=== PATIENT | male | born 1970 | race African-American/Black ===

== ENCOUNTER 2017-11-29 12:46 | Emergency (ER) | payer SELFPAY ==
[2017-11-29 15:10] LABS: Bilirubin Negative (Negative); Blood, Urine Negative (Negative); Clarity CLEAR (Clear); Glucose, Urine (Dipstick) >=1000 mg/dL (Negative); Leukocyte Small (Negative); Nitrite Negative (Negative); Protein, Urine (Dipstick) Negative (Neg-Trace); Specific Gravity, Urine 1.029 (1.002-1.036)
[2017-11-29 15:15] LABS: Bacteria/HPF None Seen HPF (None Seen); Hyaline Casts/LPF 7-10 HYALINE CAST LPF (0-3 Hyaline); RBC/HPF 0-3 HPF (0-3); Squamous Epithelial 0-3 HPF (0-3); WBC/HPF 21-50 HPF (0-3)
[2017-11-29] MEDS ORDERED: Lidocaine 1% w/Epinephrine 1:100K 20 ML VIAL ONE (15:37)
[2017-11-29] MEDS ORDERED: Lidocaine 1% (PF) 30 ML VIAL ONE (16:13)
[2017-11-29] MEDS ORDERED: Piperacillin/Tazobactam 4.5 GM in Sodium Chloride 0.9% 100 ML IVPB ONE (17:00)
[2017-11-29 17:21] LABS: #Basophils 0.1 thou/uL (0.0-0.2); #Eosinphils 0.1 thou/uL (0.0-0.7); #Lymphocytes 2.1 thou/uL (1.20-3.40); #Monocytes 0.9 thou/uL (0.11-0.59); #Neutrophils 9.3 thou/uL (1.40-6.50); %Basophils 0.5 % (0.0-1.0); %Eosinophils 0.9 % (0.0-10.0); %Lymphocytes 16.9 % (21.0-51.0); %Monocytes 7.1 % (0.0-10.0); %Neutrophils 74.6 % (42.0-75.0); Hemoglobin 15.6 g/dL (14.0-18.0); Mean Corpuscular HGB CONC 33.7 g/dL (32.0-36.0); Mean Corpuscular Hemoglobin 29.7 pg (27.0-31.0); Mean Corpuscular Volume 88.2 fl (80.0-94.0); Mean Platelet Volume 7.4 fL (7.4-10.4); Platelet Count 320 thou/uL (130-400); RBC Distribution Width 11.2 % (11.5-14.5); Red Blood Cell (RBC) Count 5.23 mill/uL (4.70-6.10); White Blood Cell (WBC) Count 12.5 thou/uL (4.8-10.8)
[2017-11-29 17:39] LABS: ALT (SGPT) 13 U/L (8-55); AST (SGOT) 9 U/L (5-34); Albumin 3.8 g/dL (3.5-5.0); Alkaline Phosphatase 89 U/L (40-150); Anion Gap 12 mmol/L (10-20); BUN (Urea Nitrogen) 10 mg/dL (8.9-20.6); Bilirubin, Total 0.7 mg/dL (0.2-1.2); Calc. Creatinine Clearance 0 mL/min (70-130); Calcium 9.1 mg/dL (7.8-10.44); Carbon Dioxide 24 mmol/L (22-29); Chloride 104 mmol/L (98-107); Estimated GFR-MDRD Greater than 90; Globulin 2.9 g/dL (2.4-3.5); Glucose 187 mg/dL (70-105); Protein, Total 6.7 g/dL (6.0-8.3); Sodium 136 mmol/L (136-145)
== END 2017-11-29 19:25 | disposition home or self-care (01) ==
LOC: ERS 12:46
DX: L02.215 Cutaneous abscess of perineum (principal); E11.65 Type 2 diabetes mellitus with hyperglycemia; F17.200 Nicotine dependence, unspecified, uncomplicated
CPT/HCPCS: 36415; 36416; 46040; 80053; 81003; 81015; 85025; 87040; 87070; 87086; 87205; 96365; 99406; J2001; J2543; J7050

== ENCOUNTER 2018-01-16 07:22 | Emergency (ER) | payer SELFPAY ==
--- NOTE | 2018-01-16 10:10 | RAD ---
3 VIEWS RIGHT SHOULDER: Date: 01/16/18 COMPARISON: None. HISTORY: Fall, trauma, and pain. FINDINGS: There is no widening of the acromioclavicular or coracoclavicular interspace. No displaced fracture o r evidence of dislocation seen. IMPRESSION: No acute findings. POS: [facility]
== END 2018-01-16 08:42 | disposition home or self-care (01) ==
LOC: ERS 07:22
DX: S40.011A Contusion of right shoulder, initial encounter (principal); E11.9 Type 2 diabetes mellitus without complications; F17.210 Nicotine dependence, cigarettes, uncomplicated; V86.59XA Driver of other special all-terrain or other off-road motor vehicle injured in nontraffic accident, initial encounter

== ENCOUNTER 2019-01-20 09:41 | Emergency (ER) | payer SELFPAY ==
[2019-01-20] MEDS ORDERED: Insulin Regular 300 UNITS/3 ML VIAL ONE (11:08)
[2019-01-20 11:15] LABS: #Basophils 0.1 thou/uL (0.0-0.2); #Eosinphils 0.2 thou/uL (0.0-0.7); #Lymphocytes 1.8 thou/uL (1.20-3.40); #Monocytes 0.8 thou/uL (0.11-0.59); #Neutrophils 3.8 thou/uL (1.40-6.50); %Basophils 0.9 % (0.0-1.0); %Eosinophils 3.3 % (0.0-10.0); %Neutrophils 56.8 % (42.0-75.0); Hemoglobin 14.8 g/dL (14.0-18.0); Mean Corpuscular HGB CONC 33.5 g/dL (32.0-36.0); Mean Corpuscular Hemoglobin 29.8 pg (27.0-31.0); Mean Corpuscular Volume 88.9 fL (78.0-98.0); Platelet Count 289 thou/uL (130-400); RBC Distribution Width 11.2 % (11.5-14.5); Red Blood Cell (RBC) Count 4.96 mill/uL (4.70-6.10); White Blood Cell (WBC) Count 6.7 thou/uL (4.8-10.8)
[2019-01-20 11:39] LABS: ALT (SGPT) 21 U/L (8-55); AST (SGOT) 13 U/L (5-34); Alkaline Phosphatase 95 U/L (40-150); Anion Gap 14 mmol/L (10-20); BUN (Urea Nitrogen) 13 mg/dL (8.9-20.6); Bilirubin, Total 0.7 mg/dL (0.2-1.2); Calc. Creatinine Clearance 0 mL/min (70-130); Calcium 9.7 mg/dL (7.8-10.44); Carbon Dioxide 23 mmol/L (22-29); Chloride 99 mmol/L (98-107); Estimated GFR-MDRD 87; Globulin 3.3 g/dL (2.4-3.5); Glucose 445 mg/dL (70-105); Potassium 4.6 mmol/L (3.5-5.1); Protein, Total 7.3 g/dL (6.0-8.3); Sodium 131 mmol/L (136-145)
[2019-01-20 11:39] LABS: Bilirubin Negative (Negative); Blood, Urine Negative (Negative); Clarity CLEAR (Clear); Glucose, Urine (Dipstick) >=1000 mg/dL (Negative); Leukocyte Negative (Negative); Nitrite Negative (Negative); Protein, Urine (Dipstick) Negative (Neg-Trace); Specific Gravity, Urine 1.035 (1.002-1.036); Urobilinogen 0.2 mg/dL (0.2-1.0); pH, Urine 5.5 (5.0-9.0)
[2019-01-20 11:43] LABS: Bicarbonate (HCO3v) 25.5 mmol/L (22.0-28.0); CO2 Tension (PvCO2) 43.5 mmHg (40.0-50.0); Calcium, Ionized 1.15 mmol/L (See Comments:); Chloride 101 mmol/L (98-107); Hemoglobin - Calc 15.9 g/dL (14.0-18.0); Potassium 4.7 mmol/L (3.5-5.1); Sodium 133 mmol/L (138-145); T. Carbon Dioxide 26.8 mmol/L (22.0-28.0); pH (Venous) 7.376 (7.320-7.430); vO2 Saturation-calc 80.4 % (60.0-85.0)
== END 2019-01-20 13:09 | disposition home or self-care (01) ==
LOC: ERS 09:41
DX: J06.9 Acute upper respiratory infection, unspecified (principal); E11.65 Type 2 diabetes mellitus with hyperglycemia; F17.210 Nicotine dependence, cigarettes, uncomplicated
CPT/HCPCS: 36415; 36416; 80053; 81003; 82010; 82330; 82803; 85025; 96361; 96374; J1815

== ENCOUNTER 2019-07-15 05:31 | Observation (INO) | payer SELFPAY ==
[2019-07-15 06:22] LABS: #Basophils 0.1 thou/uL (0.0-0.2); #Lymphocytes 2.2 thou/uL (1.20-3.40); #Monocytes 0.5 thou/uL (0.11-0.59); #Neutrophils 5.9 thou/uL (1.40-6.50); %Basophils 0.6 % (0.0-1.0); %Eosinophils 0.3 % (0.0-10.0); %Lymphocytes 24.7 % (21.0-51.0); %Monocytes 6.2 % (0.0-10.0); %Neutrophils 68.2 % (42.0-75.0); Hemoglobin 15.4 g/dL (14.0-18.0); Mean Corpuscular Hemoglobin 30.6 pg (27.0-31.0); Mean Corpuscular Volume 87.3 fL (78.0-98.0); Mean Platelet Volume 7.9 fL (7.4-10.4); Platelet Count 294 thou/uL (130-400); RBC Distribution Width 11.4 % (11.5-14.5); Red Blood Cell (RBC) Count 5.02 mill/uL (4.70-6.10); White Blood Cell (WBC) Count 8.7 thou/uL (4.8-10.8)
[2019-07-15 06:44] LABS: ALT (SGPT) 18 U/L (8-55); AST (SGOT) 19 U/L (5-34); Albumin 4.1 g/dL (3.5-5.0); Alkaline Phosphatase 84 U/L (40-110); Anion Gap 17 mmol/L (10-20); BUN (Urea Nitrogen) 10 mg/dL (8.9-20.6); Bilirubin, Total 0.5 mg/dL (0.2-1.2); Calc. Creatinine Clearance 0 mL/min (70-130); Calcium 9.1 mg/dL (7.8-10.44); Carbon Dioxide 22 mmol/L (22-29); Chloride 100 mmol/L (98-107); Estimated GFR-MDRD 75; Globulin 3.4 g/dL (2.4-3.5); Glucose 279 mg/dL (70-105); Potassium 4.5 mmol/L (3.5-5.1); Protein, Total 7.5 g/dL (6.0-8.3); Sodium 134 mmol/L (136-145)
--- NOTE | 2019-07-15 08:07 | CT ---
PRELIMINARY REPORT/[facility]/EMERGENCY AFTER HOURS PROCEDURE: PROCEDURE INFORMATION: Exam: CT Head Without Contrast Exam date and time: 07/15/2019 6:18 AM Clinical history: 48 years old, male; Patient HX: M48 w/ HX of dm presents to the ED for evaluation of chest pain, SOB onset at 2200 and headache onset at 0200. PT states it feels like his "chest is caving in. " PT reports he used cocaine tonight and took a "sex pill" called "ursula leblanc. " TECHNIQUE: Imaging protocol: Computed tomography of the head without contrast. COMPARISON: No relevant prior studies available. FINDINGS: Brain: No hemorrhage. Unremarkable white matter. No mass effect. Ventricles: No ventriculomegaly. Bones/joints: No acute fracture. Sinuses: Visualized sinuses are unremarkable. No fluid levels. Mastoid air cells: Visualized mastoid air cells are well aerated. Soft tissues: Unremarkable. IMPRESSION: No acute intracranial abnormality. Thank you for allowing us to participate in the care of your patient. Dictated and Authenticated by: Aaliyah Henriquez MD 07/15/2019 6:40 AM Central Time ([place] & [place]) FINAL REPORT EMERGENCY AFTER HOURS STUDY: CT BRAIN NONCONTRAST: DATE: 07/15/2019. HISTORY: 48-year-old male with headache. FINDINGS: There is no evidence of acute intra-axial or extra-axial hemorrhage. There is no midline shift or any other mass effect. There is no extra-axial fluid collection. There is no evidence of obstructive hydrocephalus. Calvarium is intact. Agree with preliminary report by [facility]. IMPRESSION: No acute intracranial findings. Transcribed Date/Time: 07/15/2019 8:15 AM
--- NOTE | 2019-07-15 08:37 | RAD ---
RADIOGRAPH CHEST 1 VIEW: DATE: 07/15/2019 HISTORY: 48-year-old male with dyspnea FINDINGS: There are no airspace densities, pulmonary edema, pneumothorax, or cardiomegaly. The lateral costophr enic angles are sharp. IMPRESSION: No acute cardiopulmonary findings.
[2019-07-15 08:52] VITALS: BMI 30.6
[2019-07-15] MEDS: Nitroglycerin 2% Ointment 1 INCH/1 GM Packet TOP SCH ×2 (12:52→21:40)
[2019-07-15 12:58] LABS: Troponin I 0.013 ng/mL (< 0.028)
--- NOTE | 2019-07-15 13:24 | ULT ---
ULTRASOUND DOPPLER DUPLEX VENOUS LEFT LOWER EXTREMITY: DATE: 07/15/2019 HISTORY: 48-year-old male with bilateral lower extremity pain. TECHNIQUE: Grayscale, color-flow, and spectral analysis, of major veins of left lower extremity. FINDINGS: There is demonstration of blood flow with normal compressibility, of the left common femoral, profund a femoral, greater saphenous, femoral, popliteal, and posterior tibial, veins. IMPRESSION: Negative. No deep venous thrombosis of left lower extremity.
[2019-07-15] MEDS ORDERED: Ondansetron ODT 4 MG TAB PO PRN (14:59)
[2019-07-15] MEDS ORDERED: Dextrose 50% Abboject 50 ML SYRINGE SLOW IVP PRN (14:59)
[2019-07-15] MEDS ORDERED: HumaLOG 300 UNITS/3 ML VIAL SC PRN (14:59)
[2019-07-15] MEDS ORDERED: Dextrose 5% in Water 1,000 ML IV PRN (14:59)
[2019-07-15] MEDS ORDERED: Ondansetron PF 4 MG/2 ML Vial IVP PRN (14:59)
[2019-07-15] MEDS ORDERED: Acetaminophen 325 MG TAB PO PRN (14:59)
[2019-07-15 15:33] LABS: Hemoglobin A1c 10.2 % (4.0-6.0)
[2019-07-15 15:45] LABS: Troponin I Less than 0.010 ng/mL (< 0.028)
[2019-07-15] MEDS: HumaLOG 300 UNITS/3 ML VIAL SC PRN (16:49)
--- NOTE | 2019-07-15 18:54 | HP ---
PRIMARY CARE PHYSICIAN: None. CHIEF COMPLAINT: Chest pain. HISTORY OF PRESENT ILLNESS: Mr. Walton is a 48-year-old man with a past medical history of diabetes, not on any home medications, presented to the ED earlier this morning due to new onset of chest pain and shortness of breath along with a headache that started late last night. He states that one of his friends was in town and they had went out alliance party last night, he states that he used cocaine for the first time and took a sex pill called Black Mamba that he got at a local store. He states that he had taken Black Mamba in the past that had also given him some chest tightness. He states that his chest pain started around 10 o'clock last night and had later progressed on to this morning. Last night, he had noticed some chest pain, shortness of breath, diaphoresis, dizziness, and lightheadedness. He says since that his symptoms are actually resolved now. In the ED, he was treated with nitroglycerin and aspirin, his serial troponins were found to be negative thus far and normal BNP. The patient states that he used to take metformin and another form of anti-glycemic for diabetes in the past, but has not been on any sort of medications for the last several years. He also denies any form of PCP to follow up with. Currently, the patient denies any fever, chills, headache, blurred vision, dizziness, chest pain, palpitations, shortness of breath, abdominal pain, nausea, or vomiting. 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 REVIEW OF SYSTEMS: All other systems reviewed and found to be negative unless mentioned in HPI. PAST MEDICAL HISTORY: History of diabetes mellitus, not on any home medications. PAST SURGICAL HISTORY: Unknown surgery on his chest. PSYCHIATRIC HISTORY: None. SOCIAL HISTORY: The patient drinks between 1 and 3 drinks daily. Currently, smokes about a half pack per day and currently abuses cocaine and marijuana. KNOWN ALLERGIES: No known drug allergies. CURRENT HOME MEDICATIONS: None. PHYSICAL EXAMINATION: VITAL SIGNS: Blood pressure 146/81, pulse 93, respirations 20, temperature 97.8, and O2 saturation 98% on room air. GENERAL: The patient is awake, alert, and oriented x3. He is currently lying comfortably in bed and in no acute distress. HEENT: Atraumatic, normocephalic. Pupils are round and reactive to light. Extraocular muscles intact. Moist mucous membranes noted. NECK: Soft and supple. Trachea midline. CARDIOVASCULAR: Positive S1 and S2. Regular rate and rhythm. No murmur auscultated. RESPIRATORY: Clear to auscultation bilaterally. No wheezes, rales, or rhonchi. ABDOMEN: Soft, nontender. Bowel sounds present. MUSCULOSKELETAL: Moves all extremities equal. Pedal and radial pulses 2+ bilaterally. The patient does have a positive Homans sign on his bilateral lower extremities. No edema noted. NEUROLOGIC: Cranial nerves 2 through 12 grossly intact. No focal deficits noted. Speech intact and normal. Gait not assessed. SKIN: Warm, dry and intact. No rashes. No ulceration noted. PSYCHIATRIC: Good mood and affect. LABORATORY DATA: WBC 8.7, RBC 5.02, hemoglobin 15.4, hematocrit 43.8, and platelet 294. Sodium 135, potassium 4.5, anion gap 17, BUN 10, creatinine 1.24, estimated GFR 75, glucose 279, AST 19, and ALT 18. Troponin negative x2. BNP less than 10. DIAGNOSTIC IMAGING: One-view chest x-ray showed no acute cardiopulmonary findings. CT brain without contrast showed no acute intracranial abnormality. ASSESSMENT AND PLAN: 1. Chest pain, the patient has also been known to abuse cocaine and marijuana along with taking a sex pill, Black Mamba. So far, his troponins are negative x2. We will obtain an echocardiogram and treat him symptomatically with topical nitroglycerin as needed. We will also monitor the patient's blood pressure and other vital signs and trend further troponins. If his chest pain returns or any other changes, we will possibly consult with Cardiology Service for further evaluation. 2. History of diabetes. His blood sugar on arrival was elevated at 279. We will check a hemoglobin A1c and place him on the insulin sliding scale with frequent Accu-Cheks, the patient used to take metformin and an unknown anti-glycemic; however, he is not on any current home medications at this time. 3. Bilateral calf tenderness with a positive Homans sign. We will check bilateral lower extremity Doppler to rule out deep venous thrombosis. 4. Deep venous thrombosis and gastrointestinal prophylaxis. 5. Code status, full code. Disposition pending further workup, workup clinical findings. Job ID: [id number]
[2019-07-16 05:48] LABS: #Basophils 0.1 thou/uL (0.0-0.2); #Eosinphils 0.2 thou/uL (0.0-0.7); #Lymphocytes 3.2 thou/uL (1.20-3.40); #Monocytes 0.6 thou/uL (0.11-0.59); #Neutrophils 2.9 thou/uL (1.40-6.50); %Basophils 0.9 % (0.0-1.0); %Eosinophils 3.1 % (0.0-10.0); %Lymphocytes 45.6 % (21.0-51.0); %Monocytes 9.1 % (0.0-10.0); %Neutrophils 41.3 % (42.0-75.0); Hemoglobin 14.3 g/dL (14.0-18.0); Mean Corpuscular HGB CONC 34.9 g/dL (32.0-36.0); Mean Corpuscular Hemoglobin 30.8 pg (27.0-31.0); Mean Corpuscular Volume 88.1 fL (78.0-98.0); Mean Platelet Volume 8.1 fL (7.4-10.4); Platelet Count 282 thou/uL (130-400); RBC Distribution Width 11.5 % (11.5-14.5); Red Blood Cell (RBC) Count 4.63 mill/uL (4.70-6.10); White Blood Cell (WBC) Count 7.1 thou/uL (4.8-10.8)
[2019-07-16] MEDS: Nitroglycerin 2% Ointment 1 INCH/1 GM Packet TOP SCH (06:04)
[2019-07-16] MEDS: HumaLOG 300 UNITS/3 ML VIAL SC PRN (06:07)
[2019-07-16 06:19] LABS: BUN (Urea Nitrogen) 13 mg/dL (8.9-20.6); Calc. Creatinine Clearance 120 mL/min (70-130); Calcium 8.6 mg/dL (7.8-10.44); Carbon Dioxide 16 mmol/L (22-29); Cardiac Risk 6.5 (Less than 4.5); Chloride 103 mmol/L (98-107); Cholesterol 261 mg/dl (< 200 Desired); Estimated GFR-MDRD 82; Glucose 220 mg/dL (70-105); HDL Cholesterol 40 mg/dL (>60 Neg Risk); LDL Cholesterol, Calculated 172 mg/dL; Potassium 4.1 mmol/L (3.5-5.1); Sodium 130 mmol/L (136-145); Triglycerides 243 mg/dL (Less than 150)
[2019-07-16 06:37] LABS: Anion Gap 15 mmol/L (10-20)
[2019-07-16] MEDS ORDERED: Glimepiride 2 MG TAB PO SCH (08:00)
[2019-07-16 08:18] VITALS: BP 119/69; TEMP 98.7
[2019-07-16] MEDS ORDERED: Enoxaparin Sodium 40 MG/0.4 ML SYRINGE SC SCH (09:00)
[2019-07-16] MEDS ORDERED: Isosorbide Mononitrate (ER) 30 MG TAB PO SCH (09:00)
--- NOTE | 2019-07-16 10:51 | PDOC.EVN ---
Event Note - Event Note Event Note: discharged home. discharge summary dictated
[2019-07-16 13:30] LABS: Troponin I 0.017 ng/mL (< 0.028)
[2019-07-16] MEDS ORDERED: Atorvastatin Calcium 40 MG TAB PO SCH (21:00)
--- NOTE | 2019-07-17 08:14 | DIS ---
DATE OF ADMISSION: 07/15/2019 DATE OF DISCHARGE: 07/16/2019 PRIMARY CARE PHYSICIAN: None. DISCHARGE DIAGNOSES: 1. Presumed acute coronary syndrome/unstable angina. 2. Presumed vascular spasm from cocaine abuse. 3. Uncontrolled diabetes mellitus with hemoglobin A1c of 10.2. 4. Cocaine abuse. 5. Tobacco abuse. 6. Diastolic dysfunction. 7. Chest pain. 8. Acute respiratory insufficiency. 9. Metabolic acidosis. CONSULTS: None. HOSPITAL COURSE: A 48-year-old male patient with known history of uncontrolled diabetes, who continues to smoke cigarette, admitted due to acute onset of chest pain associated with shortness of breath after using cocaine and black mamba. The patient also reported bilateral calf tenderness. He was treated with nitroglycerin and analgesic with improvement. Acute myocardial infarction was ruled out with serial troponin. Further evaluation showed metabolic acidosis as well as uncontrolled diabetes with hemoglobin A1c of 10.2. The patient was started with insulin therapy and later on oral hypoglycemic agent with improvement in glycemic control. The patient also was found to have elevated blood pressure and was started on isosorbide mononitrate. He also was found to have abnormal lipids and was started on Lipitor. Echocardiogram showed diastolic dysfunction. I had extensive discussion with the patient about the need to be compliant with medications as well as follow up with PCP and avoid tobacco and recreational substances. The patient improved and remained stable and was chest-pain free and was subsequently discharged home. PHYSICAL EXAMINATION: VITAL SIGNS: Temperature 98.7, pulse 84, respiratory rate 16, SpO2 of 95% on room air, and blood pressure is 119/69. GENERAL: Obese male, in no obvious distress. Afebrile. Anicteric. Acyanotic. HEENT: Normocephalic, atraumatic. Oral mucosa is moist. CARDIOVASCULAR: Regular rhythm and rate with normal heart sounds 1 and 2. RESPIRATORY: Good air entry bilaterally with no crackle or rhonchi or use of accessory muscles. GASTROINTESTINAL: Obese, soft, nontender, and nondistended with normal bowel sounds. EXTREMITIES: Grossly normal looking, atraumatic with no edema or erythema. CENTRAL NERVOUS SYSTEM: Conscious, alert, oriented x3 with appropriate mental status. Cranial nerves II through XII are grossly intact. The patient is ambulant. DISCHARGE DISPOSITION: Home. DISCHARGE CONDITION: Improved. DISCHARGE MEDICATIONS: 1. Aspirin 325 mg p.o. daily. 2. Lipitor 40 mg p.o. daily at bedtime. 3. Amaryl 2 mg p.o. daily. 4. Isosorbide mononitrate 30 mg p.o. daily. 5. Metformin 500 mg p.o. b.i.d. FOLLOWUP: The patient was advised to follow up with PCP of his choice or go to [facility] in 1 week for further evaluation and treatment. Job ID: [id number]
== END 2019-07-16 11:12 | disposition home or self-care (01) ==
LOC: ERS 05:31 → 2SW 08:43
PROVIDERS: ADMIT Internal Medicine; ATTEND Internal Medicine
DX: R07.9 Chest pain, unspecified (principal); R06.02 Shortness of breath; E11.10 Type 2 diabetes mellitus with ketoacidosis without coma; F17.210 Nicotine dependence, cigarettes, uncomplicated; F12.10 Cannabis abuse, uncomplicated; F14.10 Cocaine abuse, uncomplicated; M79.662 Pain in left lower leg; M79.661 Pain in right lower leg; R06.89 Other abnormalities of breathing
CPT/HCPCS: 36415; 36416; 70450; 71045; 80048; 80053; 80061; 83036; 83880; 84443; 84484; 85025; 93005; 93306; 93970; G0378

== ENCOUNTER 2019-09-19 01:03 | Emergency (ER) | payer SELFPAY | END 2019-09-19 02:21 | disposition home or self-care (01) | LOC: ERS 01:03 | DX: J11.1 Influenza due to unidentified influenza virus with other respiratory manifestations (principal); E11.9 Type 2 diabetes mellitus without complications; F17.210 Nicotine dependence, cigarettes, uncomplicated | CPT/HCPCS: 87804; 99281 ==

== ENCOUNTER 2021-06-25 11:42 | Inpatient (IN) | payer SELFPAY ==
[~2021-06-25 11:42] MED LIST: Iopamidol-370 76% 500 ML 1 ML ONE
[2021-06-25 11:58] LABS: #Basophils 0.1 thou/uL (0.0-0.2); #Eosinphils 0.2 thou/uL (0.0-0.7); #Lymphocytes 2.8 thou/uL (1.20-3.40); #Monocytes 0.5 thou/uL (0.11-0.59); #Neutrophils 2.9 thou/uL (1.40-6.50); %Basophils 1.3 % (0.0-1.0); %Eosinophils 2.6 % (0.0-10.0); %Lymphocytes 43.7 % (21.0-51.0); %Monocytes 8.2 % (0.0-10.0); %Neutrophils 44.2 % (42.0-75.0); Hemoglobin 15.2 g/dL (14.0-18.0); Mean Corpuscular HGB CONC 32.7 g/dL (32.0-36.0); Mean Corpuscular Hemoglobin 29.1 pg (27.0-31.0); Mean Corpuscular Volume 88.8 fL (78.0-98.0); Platelet Count 322 thou/uL (130-400); RBC Distribution Width 11.3 % (11.5-14.5); Red Blood Cell (RBC) Count 5.24 mill/uL (4.70-6.10); White Blood Cell (WBC) Count 6.5 thou/uL (4.8-10.8)
[2021-06-25 12:11] LABS: INR-International Normal Ratio 0.9; PTT 28.2 sec (22.9-36.1); Prothrombin Time 12.2 sec (12.0-14.7)
[2021-06-25 12:19] LABS: ALT (SGPT) 17 U/L (8-55); AST (SGOT) 13 U/L (5-34); Albumin 3.7 g/dL (3.5-5.0); Alkaline Phosphatase 89 U/L (40-110); Anion Gap 11 mmol/L (10-20); BUN (Urea Nitrogen) 12 mg/dL (8.9-20.6); Bilirubin, Total 0.5 mg/dL (0.2-1.2); CK (CPK) 88 U/L (30-200); Calc. Creatinine Clearance 0 mL/min (70-130); Calcium 9.2 mg/dL (7.8-10.44); Carbon Dioxide 26 mmol/L (22-29); Chloride 103 mmol/L (98-107); Globulin 3.2 g/dL (2.4-3.5); Glucose 292 mg/dL (70-105); Potassium 4.1 mmol/L (3.5-5.1); Protein, Total 6.9 g/dL (6.0-8.3); Sodium 136 mmol/L (136-145)
[2021-06-25] MEDS ORDERED: Aspirin 325 MG TAB ONE (12:46)
[2021-06-25 13:49] LABS: Acetaminophen Less than 6.0 mcg/mL (10.0-30.0); Alcohol Less than 10 mg/dL (Less than 10); Salicylate Less than 8.0 mg/dL (15.0-30.0)
[2021-06-25] MEDS ORDERED: Insulin Regular 300 UNITS/3 ML VIAL ONE (14:02)
[2021-06-25] MEDS ORDERED: hydrALAZINE 20 MG/ML VIAL SLOW IVP PRN (16:56)
[2021-06-25] MEDS ORDERED: Dextrose 50% Abboject 50 ML SYRINGE SLOW IVP PRN (16:56)
[2021-06-25] MEDS ORDERED: Dextrose 5% in Water 1,000 ML IV PRN (16:56)
[2021-06-25] MEDS ORDERED: HumaLOG 300 UNITS/3 ML VIAL SC PRN ×2 (16:56)
[2021-06-25] MEDS ORDERED: Labetalol HCl 100 MG/20 ML VIAL SLOW IVP PRN (16:56)
[2021-06-25 21:01] LABS: SARS-CoV-2 NAA Rapid Test Not Detected (NotDetected)
[2021-06-25] MEDS: Nicotine 14 MG PATCH TD SCH (22:24)
[2021-06-25] MEDS: Atorvastatin Calcium 40 MG TAB PO SCH (22:24)
[2021-06-26 03:37] VITALS: BMI 30.1
[2021-06-26 06:04] LABS: #Basophils 0.1 thou/uL (0.0-0.2); #Eosinphils 0.2 thou/uL (0.0-0.7); #Lymphocytes 2.7 thou/uL (1.20-3.40); #Monocytes 0.5 thou/uL (0.11-0.59); #Neutrophils 2.8 thou/uL (1.40-6.50); %Eosinophils 3.3 % (0.0-10.0); %Lymphocytes 42.7 % (21.0-51.0); %Monocytes 8.3 % (0.0-10.0); %Neutrophils 44.7 % (42.0-75.0); Hemoglobin 14.5 g/dL (14.0-18.0); Mean Corpuscular Hemoglobin 29.4 pg (27.0-31.0); Mean Corpuscular Volume 89.2 fL (78.0-98.0); Mean Platelet Volume 8.2 fL (7.4-10.4); Platelet Count 272 thou/uL (130-400); RBC Distribution Width 11.3 % (11.5-14.5); Red Blood Cell (RBC) Count 4.94 mill/uL (4.70-6.10); White Blood Cell (WBC) Count 6.3 thou/uL (4.8-10.8)
[2021-06-26 06:22] LABS: Hemoglobin A1c 11.7 % (4.0-6.0)
[2021-06-26 06:26] LABS: Anion Gap 9 mmol/L (10-20); BUN (Urea Nitrogen) 14 mg/dL (8.9-20.6); Calc. Creatinine Clearance 137 mL/min (70-130); Calcium 8.7 mg/dL (7.8-10.44); Carbon Dioxide 26 mmol/L (22-29); Cardiac Risk 5.9 (Less than 4.5); Chloride 106 mmol/L (98-107); Cholesterol 231 mg/dl (< 200 Desired); Glucose 291 mg/dL (70-105); HDL Cholesterol 39 mg/dL (>60 Neg Risk); LDL Cholesterol, Calculated 144 mg/dL; Potassium 4.5 mmol/L (3.5-5.1); Sodium 136 mmol/L (136-145); Triglycerides 239 mg/dL (Less than 150)
[2021-06-26] MEDS: Aspirin 325 mg Enteric Coated Tablet PO SCH (07:35)
[2021-06-26 08:03] LABS: Amphetamine Not Detected (NotDetected); Barbiturates Screen Not Detected (NotDetected); Benzodiazepine Screen Not Detected (NotDetected); Cocaine Metabolite Screen Detected (NotDetected); Methadone Not Detected (NotDetected); Methamphetamine Not Detected (NotDetected); Opiate Screen Not Detected (NotDetected); Oxycodone Screen Not Detected (NotDetected); Phencyclidine (PCP) Not Detected (NotDetected); THC/Cannabinoid Screen Not Detected (NotDetected); Tricyclic Screen Not Detected (NotDetected)
[2021-06-26] MEDS: Nicotine 14 MG PATCH TD SCH (17:01)
[2021-06-26] MEDS: Atorvastatin Calcium 40 MG TAB PO SCH (21:29)
[2021-06-27] MEDS ORDERED: Lantus 1000 UNITS/10 ML VIAL SC SCH (09:00)
[2021-06-27] MEDS: Aspirin 325 mg Enteric Coated Tablet PO SCH (09:18)
[2021-06-27 11:52] VITALS: TEMP 98.2
[2021-06-27 12:20] VITALS: BP 151/99
[2021-06-27] MEDS ORDERED: metFORMIN 500 MG TAB PO SCH (17:00)
[2021-06-28] MEDS ORDERED: Lisinopril 10 MG TAB PO SCH (09:00)
== END 2021-06-27 13:33 | disposition home or self-care (01) | DRG 65 ==
LOC: ERS 11:42 → ERHOLD 13:49 → 3SE 20:38 → OBSVTOIN 06-26 16:37
PROVIDERS: ADMIT Internal Medicine; ATTEND Internal Medicine
DX: I63.9 Cerebral infarction, unspecified (principal); G81.91 Hemiplegia, unspecified affecting right dominant side; I10 Essential (primary) hypertension; R47.1 Dysarthria and anarthria; R29.810 Facial weakness; Z20.822 Contact with and (suspected) exposure to COVID-19; F17.210 Nicotine dependence, cigarettes, uncomplicated; E11.9 Type 2 diabetes mellitus without complications; Z79.82 Long term (current) use of aspirin; Z79.84 Long term (current) use of oral hypoglycemic drugs; Z71.6 Tobacco abuse counseling; Z91.14 Patient's other noncompliance with medication regimen
CPT/HCPCS: 0241U; 36415; 36416; 70450; 70496; 70498; 70551; 71045; 80048; 80053; 80061; 80306; 80307; 82550; 83036; 84443; 84484; 85025; 85610; 85730; 93005; 93306; J1815; Q9967

== ENCOUNTER 2023-01-29 07:54 | Emergency (ER) | payer SELFPAY | END 2023-01-29 09:55 | disposition left against medical advice (07) | LOC: ERS 07:54 | DX: Z53.21 Procedure and treatment not carried out due to patient leaving prior to being seen by health care provider (principal) | CPT/HCPCS: 99282 ==

== ENCOUNTER 2024-05-17 07:24 | Emergency (ER) | payer SELFPAY ==
[2024-05-17] MEDS ORDERED: Albuterol 200 PUFF (6.7GM INHALER) ONE (08:09)
[2024-05-17 08:54] LABS: Influenza A by NAA Not Detected (NotDetected); Influenza B by NAA Not Detected (NotDetected); SARS-CoV-2 NAA Rapid Test DETECTED (NotDetected)
== END 2024-05-17 09:35 | disposition home or self-care (01) ==
LOC: ERS 07:24
DX: U07.1 COVID-19 (principal); E11.9 Type 2 diabetes mellitus without complications; Z86.16 Personal history of COVID-19
CPT/HCPCS: 99283

== ENCOUNTER 2024-06-25 10:28 | Emergency (ER) | payer SELFPAY ==
[2024-06-25 11:27] LABS: Actual Bicarbonate (HCO3v) 23.5 mEq/L (22-28); Analyzer IN Cardio ER; Base Excess -1.5 mEq/L (-2.0 to +3.0); Chloride (VBG) 100 mmol/L (98-106); Hematocrit-VBG 47 % (42.0-52.0); Sodium 136 mmol/L (133-146); pH (venous) 7.382 (7.32-7.43)
[2024-06-25 11:36] LABS: #Basophils 0.04 10x3/uL (0.0-0.2); %Basophils 0.7 % (0.0-1.0); %Lymphocytes 28.8 % (21.0-51.0); %Monocytes 7.9 % (0.0-10.0); %Neutrophils 60.4 % (42.0-75.0); Hematocrit 43.6 % (42.0-52.0); Hemoglobin 14.9 g/dL (14.0-18.0); Mean Corpuscular HGB CONC 34.2 g/dL (32.0-36.0); Mean Corpuscular Hemoglobin 29.5 pg (27.0-31.0); Mean Corpuscular Volume 86.3 fL (78.0-98.0); Mean Platelet Volume 10.4 fL (7.4-10.4); Platelet Count 337 10x3/uL (130-400); RBC Distribution Width 11.9 % (11.5-14.5); Red Blood Cell (RBC) Count 5.05 mill/uL (4.70-6.10)
[2024-06-25 11:55] LABS: ALT (SGPT) 14 U/L (8-55); AST (SGOT) 13 U/L (5-34); Albumin 3.3 g/dL (3.5-5.0); Alkaline Phosphatase 84 U/L (40-110); Anion Gap 14 mmol/L (10-20); BUN (Urea Nitrogen) 14 mg/dL (8.4-25.7); Bilirubin, Total 0.7 mg/dL (0.2-1.2); Calc. Creatinine Clearance 0 mL/min (70-130); Calcium 8.9 mg/dL (7.8-10.44); Carbon Dioxide 24 mmol/L (22-29); Chloride 103 mmol/L (98-107); Estimated GFR 85; Globulin 3.4 g/dL (2.4-3.5); Glucose 383 mg/dL (70-105); Potassium 4.2 mmol/L (3.5-5.1); Protein, Total 6.7 g/dL (6.0-8.3); Sodium 137 mmol/L (136-145)
== END 2024-06-25 12:56 | disposition home or self-care (01) ==
LOC: ERS 10:28
DX: S90.821A Blister (nonthermal), right foot, initial encounter (principal); I10 Essential (primary) hypertension; E11.65 Type 2 diabetes mellitus with hyperglycemia
CPT/HCPCS: 36416; 80053; 82010; 82805; 85025; 99283

== ENCOUNTER 2024-08-07 08:17 | Observation (INO) | payer SELFPAY ==
[2024-08-07 08:48] LABS: #Basophils 0.05 10x3/uL (0.0-0.2); %Basophils 0.8 % (0.0-1.0); %Eosinophils 1.6 % (0.0-10.0); %Lymphocytes 34.9 % (21.0-51.0); %Monocytes 8.3 % (0.0-10.0); %Neutrophils 54.2 % (42.0-75.0); Hemoglobin 15.4 g/dL (14.0-18.0); Mean Corpuscular Hemoglobin 29.3 pg (27.0-31.0); Mean Corpuscular Volume 83.8 fL (78.0-98.0); Mean Platelet Volume 10.6 fL (7.4-10.4); Platelet Count 318 10x3/uL (130-400); RBC Distribution Width 11.8 % (11.5-14.5); Red Blood Cell (RBC) Count 5.25 mill/uL (4.70-6.10)
[2024-08-07 09:01] LABS: Prothrombin Time 12.7 sec (12.0-14.7)
[2024-08-07 09:02] LABS: PTT 27.6 sec (22.9-36.1)
[2024-08-07 09:06] LABS: ALT (SGPT) 17 U/L (8-55); AST (SGOT) 19 U/L (5-34); Albumin 3.7 g/dL (3.5-5.0); Alkaline Phosphatase 83 U/L (40-110); Anion Gap 13 mmol/L (10-20); BUN (Urea Nitrogen) 15 mg/dL (8.4-25.7); Bilirubin, Total 0.7 mg/dL (0.2-1.2); Calc. Creatinine Clearance 0 mL/min (70-130); Calcium 9.4 mg/dL (7.8-10.44); Carbon Dioxide 26 mmol/L (22-29); Chloride 101 mmol/L (98-107); Estimated GFR 84; Glucose 323 mg/dL (70-105); Potassium 4.8 mmol/L (3.5-5.1); Protein, Total 7.7 g/dL (6.0-8.3); Sodium 135 mmol/L (136-145)
[2024-08-07 09:08] LABS: Troponin I Less than 0.010 ng/mL (< 0.028)
[2024-08-07] MEDS ORDERED: Aspirin Chewable 81 MG TAB ONE (10:30)
[2024-08-07] MEDS ORDERED: Iopamidol-370 76% 500 ML MDV (1 ML CHARGE) ONE (10:36)
[2024-08-07] MEDS ORDERED: Ondansetron ODT 4 MG TAB PO PRN (11:17)
[2024-08-07] MEDS ORDERED: Acetaminophen 325 MG TAB PO PRN (11:17)
[2024-08-07 12:09] LABS: Hemoglobin A1c 12.5 % (4.0-6.0)
[2024-08-07 12:26] LABS: Cardiac Risk 5.4 (Less than 4.5)
[2024-08-07] MEDS ORDERED: Dextrose 5% in Water 1,000 ML IV PRN (13:08)
[2024-08-07] MEDS ORDERED: Dextrose 50% Abboject 50 ML SYRINGE SLOW IVP PRN (13:08)
[2024-08-07] MEDS ORDERED: Glucagon 1 MG/ML KIT IM PRN (13:08)
[2024-08-07] MEDS ORDERED: Insulin Lispro 100 UNIT/ML 10 ML VIAL SC PRN (13:08)
[2024-08-07] MEDS: Insulin Glargine 30 UNITS/0.3 ML VIAL SC SCH (13:41)
[2024-08-07 20:38] VITALS: BMI 30.5
[2024-08-07] MEDS ORDERED: hydrALAZINE 20 MG/ML VIAL SLOW IVP PRN (23:21)
[2024-08-08 04:53] LABS: ALT (SGPT) 15 U/L (8-55); AST (SGOT) 13 U/L (5-34); Albumin 3.2 g/dL (3.5-5.0); Alkaline Phosphatase 73 U/L (40-110); Anion Gap 12 mmol/L (10-20); BUN (Urea Nitrogen) 17 mg/dL (8.4-25.7); Bilirubin, Total 0.7 mg/dL (0.2-1.2); Calc. Creatinine Clearance 133 mL/min (70-130); Carbon Dioxide 22 mmol/L (22-29); Chloride 105 mmol/L (98-107); Estimated GFR 96; Globulin 3.2 g/dL (2.4-3.5); Glucose 290 mg/dL (70-105); Potassium 4.2 mmol/L (3.5-5.1); Protein, Total 6.4 g/dL (6.0-8.3); Sodium 135 mmol/L (136-145)
[2024-08-08 05:31] LABS: #Basophils 0.04 10x3/uL (0.0-0.2); %Basophils 0.7 % (0.0-1.0); %Eosinophils 2.3 % (0.0-10.0); %Lymphocytes 35.9 % (21.0-51.0); %Monocytes 10.7 % (0.0-10.0); %Neutrophils 50.2 % (42.0-75.0); Hematocrit 43.2 % (42.0-52.0); Hemoglobin 14.5 g/dL (14.0-18.0); Mean Corpuscular HGB CONC 33.6 g/dL (32.0-36.0); Mean Corpuscular Hemoglobin 28.8 pg (27.0-31.0); Mean Corpuscular Volume 85.9 fL (78.0-98.0); Mean Platelet Volume 11.1 fL (7.4-10.4); Platelet Count 306 10x3/uL (130-400); RBC Distribution Width 12.1 % (11.5-14.5); Red Blood Cell (RBC) Count 5.03 mill/uL (4.70-6.10)
[2024-08-08] MEDS: Insulin Lispro 100 UNIT/ML 10 ML VIAL SC PRN (05:56)
[2024-08-08] MEDS: Enoxaparin 40 MG (0.4 mL) SYRINGE SC SCH (08:08)
[2024-08-08 11:53] VITALS: BP 150/94; TEMP 98.2
[2024-08-10] MEDS ORDERED: FLU (Fluarix Triv) TS24-25(6MOS UP)/PF 45 MCG/0.5 ML Syringe IM ONE (09:00)
== END 2024-08-08 13:06 | disposition home or self-care (01) ==
LOC: ERS 08:17 → ERHOLD 11:19 → 2SE 19:53
PROVIDERS: ADMIT Emergency Medicine; ATTEND Emergency Medicine
DX: H35.61 Retinal hemorrhage, right eye (principal); E11.319 Type 2 diabetes mellitus with unspecified diabetic retinopathy without macular edema; H35.041 Retinal micro-aneurysms, unspecified, right eye; H54.7 Unspecified visual loss; I10 Essential (primary) hypertension; I63.9 Cerebral infarction, unspecified; Z79.84 Long term (current) use of oral hypoglycemic drugs; Z79.899 Other long term (current) drug therapy; Z79.4 Long term (current) use of insulin; Z79.82 Long term (current) use of aspirin
CPT/HCPCS: 36415; 36416; 70450; 70496; 70498; 70551; 71045; 80053; 80061; 83036; 84443; 84484; 85025; 85610; 85730; 86850; 86900; 86901; 93005; 94760; 96372; G0378; J1650; J1815; Q9967

== ENCOUNTER 2024-09-08 20:45 | Inpatient (IN) | payer SELFPAY ==
[2024-09-08 21:15] LABS: #Basophils 0.05 10x3/uL (0.0-0.2); %Basophils 0.8 % (0.0-1.0); %Eosinophils 2.7 % (0.0-10.0); %Lymphocytes 35.8 % (21.0-51.0); %Monocytes 8.8 % (0.0-10.0); %Neutrophils 51.7 % (42.0-75.0); Hematocrit 42.9 % (42.0-52.0); Hemoglobin 14.3 g/dL (14.0-18.0); Mean Corpuscular HGB CONC 33.3 g/dL (32.0-36.0); Mean Corpuscular Hemoglobin 28.8 pg (27.0-31.0); Mean Corpuscular Volume 86.3 fL (78.0-98.0); Mean Platelet Volume 10.3 fL (7.4-10.4); Platelet Count 350 10x3/uL (130-400); RBC Distribution Width 11.7 % (11.5-14.5); Red Blood Cell (RBC) Count 4.97 mill/uL (4.70-6.10)
[2024-09-08 21:34] LABS: CRP,High Sensitivity (Inhouse) 0.36 mg/dL (< or = 0.5)
[2024-09-08 21:39] LABS: ALT (SGPT) 18 U/L (8-55); AST (SGOT) 15 U/L (5-34); Albumin 3.4 g/dL (3.5-5.0); Alkaline Phosphatase 97 U/L (40-110); Anion Gap 15 mmol/L (10-20); BUN (Urea Nitrogen) 13 mg/dL (8.4-25.7); Bilirubin, Total 0.4 mg/dL (0.2-1.2); Calc. Creatinine Clearance 0 mL/min (70-130); Calcium 9.1 mg/dL (7.8-10.44); Carbon Dioxide 25 mmol/L (22-29); Chloride 98 mmol/L (98-107); Estimated GFR 83; Globulin 4.1 g/dL (2.4-3.5); Glucose 469 mg/dL (70-105); Potassium 4.4 mmol/L (3.5-5.1); Protein, Total 7.5 g/dL (6.0-8.3); Sodium 134 mmol/L (136-145)
[2024-09-09 00:13] LABS: Lactic Acid 2.19 mmol/L (0.5-2.2)
[2024-09-09] MEDS ORDERED: Cefepime 1 GM VIAL ONE (01:30)
[2024-09-09] MEDS ORDERED: Labetalol HCl 100 MG/20 ML VIAL ONE (01:30)
[2024-09-09] MEDS ORDERED: Insulin Regular, Human 100 UNIT/ML 10 ML VIAL ONE (01:30)
[2024-09-09] MEDS ORDERED: Sodium Chloride 0.9% 100 ML ONE (01:33)
[2024-09-09] MEDS ORDERED: Vancomycin (BATCH) 2 GM/500 ML BAG ONE (02:26)
[2024-09-09] MEDS ORDERED: Acetaminophen 325 MG TAB PO PRN (02:33)
[2024-09-09] MEDS ORDERED: Dextrose 50% Abboject 50 ML SYRINGE SLOW IVP PRN (02:33)
[2024-09-09] MEDS ORDERED: Ondansetron PF 4 MG/2 ML Vial IVP PRN (02:33)
[2024-09-09] MEDS ORDERED: Dextrose 5% in Water 1,000 ML IV PRN (02:33)
[2024-09-09] MEDS ORDERED: Ondansetron ODT 4 MG TAB PO PRN (02:33)
[2024-09-09] MEDS ORDERED: Glucagon 1 MG/ML KIT IM PRN (02:33)
[2024-09-09 03:26] VITALS: BMI 28.9
[2024-09-09] MEDS ORDERED: Labetalol HCl 100 MG/20 ML VIAL SLOW IVP PRN (05:30)
[2024-09-09 06:20] LABS: Hemoglobin A1c 13.3 % (4.0-6.0)
[2024-09-09] MEDS: Enoxaparin 40 MG (0.4 mL) SYRINGE SC SCH (08:46)
[2024-09-09] MEDS: Losartan 25 MG TAB PO SCH (09:24)
[2024-09-09] MEDS ORDERED: Magnevist 469MG/ML 20 ML VIAL ONE (11:25)
[2024-09-09] MEDS: Insulin Lispro 100 UNIT/ML 10 ML VIAL SC PRN ×2 (12:03→21:08)
[2024-09-09] MEDS: VANCOMYCIN 1.25 GM/250 ML BAG 1.25 GM in Premix 1 BAG IVPB SCH (13:51)
[2024-09-09 13:57] VITALS: BMI 28.9
[2024-09-09] MEDS: Cefepime 1 GM in Sodium Chloride 0.9% 100 ML IVPB SCH (15:39)
[2024-09-09] MEDS: Insulin Glargine 30 UNITS/0.3 ML VIAL SC SCH (21:09)
[2024-09-10 06:19] LABS: #Basophils 0.04 10x3/uL (0.0-0.2); %Basophils 0.6 % (0.0-1.0); %Eosinophils 2.5 % (0.0-10.0); %Lymphocytes 37.6 % (21.0-51.0); Hematocrit 40.3 % (42.0-52.0); Hemoglobin 13.7 g/dL (14.0-18.0); Mean Corpuscular Hemoglobin 28.8 pg (27.0-31.0); Mean Corpuscular Volume 84.7 fL (78.0-98.0); Mean Platelet Volume 10.2 fL (7.4-10.4); Platelet Count 304 10x3/uL (130-400); RBC Distribution Width 11.8 % (11.5-14.5); Red Blood Cell (RBC) Count 4.76 mill/uL (4.70-6.10)
[2024-09-10 06:32] LABS: Vancomycin, Random 12.3 ug/mL (See Comment)
[2024-09-10 06:34] LABS: Anion Gap 14 mmol/L (10-20); BUN (Urea Nitrogen) 14 mg/dL (8.4-25.7); Calc. Creatinine Clearance 152 mL/min (70-130); Calcium 8.8 mg/dL (7.8-10.44); Carbon Dioxide 21 mmol/L (22-29); Chloride 107 mmol/L (98-107); Estimated GFR 105; Glucose 157 mg/dL (70-105); Potassium 3.6 mmol/L (3.5-5.1); Sodium 138 mmol/L (136-145)
[2024-09-10] MEDS: Potassium Chloride 20 MEQ TAB PO SCH (10:52)
[2024-09-10] MEDS: Cefepime 2 GM in Sodium Chloride 0.9% 100 ML IVPB SCH (11:49)
[2024-09-10] MEDS: Vancomycin (BATCH) 1.5 GM in Premix 1 BAG IVPB SCH (12:58)
[2024-09-10] MEDS: Insulin Glargine 30 UNITS/0.3 ML VIAL SC SCH (19:44)
[2024-09-11 05:27] LABS: #Basophils 0.05 10x3/uL (0.0-0.2); %Basophils 0.8 % (0.0-1.0); %Eosinophils 2.6 % (0.0-10.0); %Lymphocytes 46.5 % (21.0-51.0); %Monocytes 10.3 % (0.0-10.0); %Neutrophils 39.6 % (42.0-75.0); Hematocrit 39.8 % (42.0-52.0); Hemoglobin 13.7 g/dL (14.0-18.0); Mean Corpuscular HGB CONC 34.4 g/dL (32.0-36.0); Mean Corpuscular Hemoglobin 28.8 pg (27.0-31.0); Mean Corpuscular Volume 83.8 fL (78.0-98.0); Mean Platelet Volume 10.4 fL (7.4-10.4); Platelet Count 286 10x3/uL (130-400); RBC Distribution Width 11.7 % (11.5-14.5); Red Blood Cell (RBC) Count 4.75 mill/uL (4.70-6.10)
[2024-09-11 05:57] LABS: Anion Gap 12 mmol/L (10-20); BUN (Urea Nitrogen) 18 mg/dL (8.4-25.7); Calc. Creatinine Clearance 119 mL/min (70-130); Calcium 8.7 mg/dL (7.8-10.44); Carbon Dioxide 22 mmol/L (22-29); Chloride 107 mmol/L (98-107); Estimated GFR 86; Glucose 202 mg/dL (70-105); Magnesium 1.8 mg/dL (1.6-2.6); Potassium 3.8 mmol/L (3.5-5.1); Sodium 137 mmol/L (136-145)
[2024-09-11] MEDS: Losartan 25 MG TAB PO SCH (08:20)
[2024-09-11] MEDS: Insulin Glargine 30 UNITS/0.3 ML VIAL SC SCH (10:14)
[2024-09-11] MEDS: hydrALAZINE 25 MG TAB PO SCH (16:33)
[2024-09-11 16:40] VITALS: BP 165/92; TEMP 97.9
[2024-09-11] MEDS ORDERED: Vancomycin 1 GM in Premix 1 BAG IVPB SCH (22:00)
[2024-09-12] MEDS ORDERED: Insulin Glargine 30 UNITS/0.3 ML VIAL SC SCH (09:00)
== END 2024-09-11 16:42 | disposition home or self-care (01) | DRG 638 ==
LOC: ERS 20:45 → ERHOLD 09-09 02:26 → T4-B 09-09 08:35
PROVIDERS: ADMIT Student in an Organized Health Care Education/Training Program; ATTEND Internal Medicine
DX: E11.621 Type 2 diabetes mellitus with foot ulcer (principal); L97.419 Non-pressure chronic ulcer of right heel and midfoot with unspecified severity; I10 Essential (primary) hypertension; I16.0 Hypertensive urgency; Z98.890 Other specified postprocedural states
CPT/HCPCS: 36415; 36416; 80048; 80053; 80202; 83036; 83605; 83735; 85025; 86141; 87040; 87070; 87077; 87205; 96365; 96366; 96375; 97139; J0692; J1815; J3370